=== PATIENT | female | born 1955 | race Caucasian/White ===

== ENCOUNTER 2016-04-25 09:58 | Emergency (ER) | END 2016-04-25 14:33 | disposition home or self-care (01) | DX: N30.00 Acute cystitis without hematuria (principal); R10.2 Pelvic and perineal pain; M79.605 Pain in left leg; I10 Essential (primary) hypertension; E11.9 Type 2 diabetes mellitus without complications; Z79.82 Long term (current) use of aspirin; Z79.84 Long term (current) use of oral hypoglycemic drugs | CPT/HCPCS: 74176; 81003; 96372; 99285; J1885 ==

== ENCOUNTER 2018-07-26 10:53 | Emergency (ER) | payer MEDICARE, OTHER ==
[~2018-07-26] VITALS: Wt 69.0 kg
[~2018-07-26 10:53] MED LIST: ASPI-903 PO; AZIT250T PO; CARI350T29 PO; CEPH-443 PO; CYCL10TA7 PO; D-ME118S6 PO; HYDR12.58 PO; LEVO100T8 PO; LORA10TA3 PO; LOSA50TA14 PO; MECL-77 PO; METF500T24 PO; OMEP20CA9 PO; TRAM50TA PO; TRAM50TA2 PO
[2018-07-26] MEDS ORDERED: KETOROLAC 30 MG INJ IV STA (11:39)
[2018-07-26] MEDS ORDERED: IBUP-1542 PO (13:10)
--- NOTE | 2018-07-26 13:14 | ERD ---
ER Documentation Chief Complaint Chief Complaint chest pain for the past month, no sob noted. no diaphoresis HPI Patient is a 62-year-old female with hypertension and diabetes presents with chest pain. She has left sided chest pain radiating to her back. She said the symptoms started 1 month ago. She is speaking in full sentences. This is happening more frequently and is stronger. She has cough as well. Upon review of old medical records this is the patient's 10th visit to the ER since 2013. ROS All systems reviewed and are negative except as per history of present illness. Medications Home Meds Active Scripts Ibuprofen* (Motrin*) 600 Mg Tab, 600 MG PO Q6H PRN for PAIN AND OR ELEVATED TEMP, #30 TAB Prov:SANDRA BOYD MD 07/26/18 Cyclobenzaprine Hcl* (Cyclobenzaprine Hcl*) 10 Mg Tablet, 10 MG PO Q8 PRN for PAIN, #30 TAB Prov:DANN CH MD 04/25/16 Tramadol Hcl* (Ultram*) 50 Mg Tablet, 50 MG PO Q6H PRN for PAIN, #20 TAB Prov:DANN CH MD 04/25/16 Cephalexin* (Keflex*) 500 Mg Capsule, 500 MG PO QID for 5 Days, CAP Prov:DANN CH MD 04/25/16 Tramadol HCl (Tramadol HCl) 50 Mg Tablet, 50 MG PO Q4 PRN for PAIN, #16 TAB Prov:DANN CH MD 05/11/15 Dextromethorphan Hb-Promethazine Hcl (Promethazine DM Syrup) 180 Ml Syrup, 5 ML PO Q6H PRN for COUGH, #6 OZ Prov:DANN CH MD 05/11/15 Azithromycin* (Zithromax*) 250 Mg Tablet, 250 MG PO .ZPACK DIRECTED, #6 TAB TAKE 500 MG (2 TABS) THE FIRST DAY THEN 250 MG (1 TAB) DAYS 2-5 Prov:DANN CH MD 05/11/15 Meclizine Hcl* (Meclizine Hcl*) 25 Mg Tablet, 25 MG PO TID, #20 TAB Prov:PETAR ANSARI MD 12/07/14 Reported Medications Metformin Hcl* (Metformin Hcl*) 500 Mg Tablet, 500 MG PO WITH BREAKFAST DINNE, #60 TAB 08/31/15 Omeprazole* (Prilosec*) 20 Mg Capsule.dr, 20 MG PO DAILY, CAP 12/07/14 Carisoprodol* (Carisoprodol*) 350 Mg Tablet, 350 MG PO Q8 PRN for MUSCLE SPASMS, TAB 12/07/14 Loratadine* (Loratadine*) 10 Mg Tablet, 10 MG PO DAILY, TAB 07/22/14 Losartan Potassium* (Losartan Potassium*) 50 Mg Tablet, 50 MG PO DAILY, TAB 07/22/14 Aspirin* (Aspirin* Chew) 81 Mg Tab.chew, 81 MG PO DAILY, TAB.CHEW 07/22/14 Levothyroxine Sodium* (Levothyroxine Sodium*) 100 Mcg Tablet, 100 MCG PO AC BREAKFAST, TAB 07/22/14 Hydrochlorothiazide* (Hydrochlorothiazide*) 12.5 Mg Tablet, 12.5 MG PO DAILY, TAB 07/22/14 Allergies Allergies: Coded Allergies: Sulfa (Sulfonamide Antibiotics) (Verified Allergy, Unknown, 04/25/16) PMhx/Soc History of Surgery: Yes (Hysterectomy, left Inguinal hernia) Anesthesia Reaction: No Hx Neurological Disorder: No Hx Respiratory Disorders: No Hx Cardiac Disorders: Yes (HTN) Hx Psychiatric Problems: No Hx Miscellaneous Medical Probl: Yes (DM, HYPERTHYROIDSM, aortic anuerism) Hx Alcohol Use: No Hx Substance Use: No Hx Tobacco Use: No Smoking Status: Never smoker FmHx Family History: No coronary disease Physical Exam Vitals Vital Signs Date Temp Pulse Resp B/P (MAP) Pulse Ox O2 O2 Flow FiO2 Time Delivery Rate 07/26/18 82 16 109/69 98 Room Air 12:17 (82) 07/26/18 99.0 64 18 122/71 100 10:59 (88) Physical Exam Const: No acute distress Head: Atraumatic Eyes: Normal Conjunctiva ENT: Normal External Ears, Nose and Mouth. Neck: Full range of motion. No meningismus. Resp: Clear to auscultation bilaterally Cardio: Regular rate and rhythm, no murmurs Abd: Soft, non tender, non distended. Normal bowel sounds Skin: No petechiae or rashes Back: No midline or flank tenderness Ext: No cyanosis, or edema Neur: Awake and alert Psych: Normal Mood and Affect Result Diagram: 07/26/18 1153 07/26/18 1153 Results 24 hrs Laboratory Tests Test 07/26/18 11:53 White Blood Count 9.7 10^3/ul Red Blood Count 4.57 10^6/ul Hemoglobin 12.9 g/dl Hematocrit 38.9 % Mean Corpuscular Volume 85.1 fl Mean Corpuscular Hemoglobin 28.2 pg Mean Corpuscular Hemoglobin Concent 33.2 g/dl Red Cell Distribution Width 13.2 % Platelet Count 288 10^3/UL Mean Platelet Volume 10.1 fl Immature Granulocytes % 0.600 % Neutrophils % 61.4 % Lymphocytes % 26.9 % Monocytes % 8.5 % Eosinophils % 2.2 % Basophils % 0.4 % Nucleated Red Blood Cells % 0.0 /100WBC Immature Granulocytes # 0.060 10^3/ul Neutrophils # 6.0 10^3/ul Lymphocytes # 2.6 10^3/ul Monocytes # 0.8 10^3/ul Eosinophils # 0.2 10^3/ul Basophils # 0.0 10^3/ul Nucleated Red Blood Cells # 0.0 10^3/ul Sodium Level 141 mmol/L Potassium Level 3.8 mmol/L Chloride Level 106 mmol/L Carbon Dioxide Level 23 mmol/L Anion Gap 12 Blood Urea Nitrogen 20 mg/dl Creatinine 0.53 mg/dl Est Glomerular Filtrat Rate mL/min > 60 mL/min Glucose Level 104 mg/dl Calcium Level 9.6 mg/dl Troponin I < 0.012 ng/ml Current Medications Medications Dose Sig/Marc Start Time Status Last (Trade) Ordered Route PRN Stop Time Admin Dose Reason Admin Ketorolac 30 mg ONCE STAT 07/26/18 DC 07/26/18 Tromethamine IV 11:39 12:13 (Toradol) 07/26/18 11:40 Procedures/MDM EKG #1 read by me: Rate/Rhythm: Regular rate and rhythm at a rate of 64 Intervals: Normal Impression: No evidence of ischemia or arrhythmia EKG #2 read by me: Rate/Rhythm: Regular rate and rhythm at a rate of 61 Intervals: Normal Impression: No evidence of ischemia or arrhythmia Chest x-ray read by radiology is negative. Patient is a 62-year-old female presents with chest pain. She has had chest pain for 1 month. Laboratory studies are normal including a negative troponin. EKG x2 are normal. Chest x-ray is negative. At this point I doubt acute coronary syndrome, pneumonia, pneumothorax, pulmonary embolism, or aortic dissection. The patient will be discharged but will need to follow-up closely with her primary doctor within 24 to 48 hours. She can return sooner for any worsening symptoms. I do not believe the patient requires admission to the hospital at this time. Departure Diagnosis: Primary Impression: Chest pain Chest pain type: unspecified Qualified Codes: R07.9 - Chest pain, unspecified Condition: Fair Patient Instructions: Chest Pain, Uncertain Cause Referrals: Dr. Callahan your doctor Additional Instructions: Llame al doctor MAANA y sanchez syed CLAUDINE PARA DENTRO DE 1-2 JEAN.Dgale a la secretaria que nosotros le instruimos hacer esta claudine.Avise o llame si garvin condicin se empeora antes de la claudine. Regresa aqui si peor o no mejor. SANDRA BOYD MD Jul 26, 2018 13:14
[2018-07-26 13:51] VITALS: BP 104/69; PULSE 67; RESP 18
== END 2018-07-26 13:55 | disposition home or self-care (01) ==
LOC: E/R 10:53
DX: R07.9 Chest pain, unspecified (principal); E11.9 Type 2 diabetes mellitus without complications; I10 Essential (primary) hypertension; Z79.84 Long term (current) use of oral hypoglycemic drugs; Z79.82 Long term (current) use of aspirin
CPT/HCPCS: 36415; 71045; 80048; 84484; 85025; 93005; 96374; 99285; J1885